=== PATIENT | male | born 1970 | race Caucasian/White ===

== ENCOUNTER 2019-04-25 18:21 | Emergency (ER) | payer MEDICAID, MEDICARE ==
[2019-04-25 18:37] VITALS: BP 125/73
--- NOTE | 2019-04-25 18:50 | UC ---
Skin Complaint HPI - HPI Summary HPI Summary: 48-year-old male comes in with a chief complaint of rash. Started 3 days ago. He does do a lot of outside work and has been exposed to multiple different plants. Also has sprayed wasp insecticide. No difficulty swallowing no shortness of breath. It does itch. He use calamine lotion topically and Benadryl by mouth both of which to help with the itching but have not decrease the rash. No fevers or chills feels well otherwise. The rash is on his arms and neck and shoulders. It is not on his legs. The rash is worse where he's been exposed to light. - History of Current Complaint Chief Complaint: UCSkin Time Seen by Provider: 04/25/19 18:40 Stated Complaint: SKIN CONCERN Pain Intensity: 0 - Allergy/Home Medications Allergies/Adverse Reactions: Allergies Allergy/AdvReac Type Severity Reaction Status Date / Time No Known Allergies Allergy Verified 04/25/19 18:37 PMH/Surg Hx/FS Hx/Imm Hx Previously Healthy: Yes - Surgical History Surgical History: Yes Surgery Procedure, Year, and Place: C5 C6 Fusion, 2005 - Family History Known Family History: Positive: Non-Contributory - Social History Alcohol Use: Occasionally Substance Use Type: None Smoking Status (MU): Former Smoker Type: Cigarettes Amount Used/How Often: 1 PPD Length of Time of Smoking/Using Tobacco: 20 Years Have You Smoked in the Last Year: No When Did the Patient Quit Smoking/Using Tobacco: 2009 Review of Systems All Other Systems Reviewed And Are Negative: Yes Constitutional: Positive: Negative Skin: Positive: Other - see hpi Eyes: Positive: Negative ENT: Positive: Negative Respiratory: Positive: Negative Cardiovascular: Positive: Negative Gastrointestinal: Positive: Negative Motor: Positive: Negative Neurovascular: Positive: Negative Musculoskeletal: Positive: Negative Neurological: Positive: Negative Psychological: Positive: Negative Is Patient Immunocompromised?: No Physical Exam Triage Information Reviewed: Yes Appearance: Well-Appearing, No Pain Distress, Well-Nourished Vital Signs: Initial Vital Signs Temp 99.7 F 04/25/19 18:32 Pulse 83 04/25/19 18:32 Resp 18 04/25/19 18:32 BP 125/73 04/25/19 18:32 Pulse Ox 100 04/25/19 18:32 Vital Signs Reviewed: Yes Eye Exam: Normal Eyes: Positive: Conjunctiva Clear ENT: Negative: Muffled voice, Hoarse voice Neck: Positive: Supple Respiratory: Positive: No respiratory distress Musculoskeletal: Positive: Strength Intact, ROM Intact Neurological: Positive: Alert Psychological: Positive: Normal Response To Family, Age Appropriate Behavior Skin: Positive: Other - There is an erythematous slightly raised rash on the sun exposed parts both arms shoulders and neck. It is almost confluent with her son exposure. It's less dense on the shoulders where his shirt covers. No vesicles no drainage. Course/Dx - Course Course Of Treatment: Rash appears to be contact dermatitis that potentially is worsened by sunlight. No evidence of infection at this time. We'll treat with a Medrol Dosepak and he can also continue the calamine lotion and the by mouth Benadryl as needed. Reevaluate if worse or any questions or concerns. - Diagnoses Provider Diagnosis: Rash, Contact dermatitis Discharge - Sign-Out/Discharge Documenting (check all that apply): Patient Departure All imaging exams completed and their final reports reviewed: No Studies - Discharge Plan Condition: Stable Disposition: HOME Prescriptions: methylPREDNISolone [Medrol Dosepak 4 MG*] 0 mg PO .SEE KITA INSTRUCTION #1 kita Patient Education Materials: Contact Dermatitis (ED), Acute Rash (ED) Referrals: [facility] [place] [facility] [Outside] Additional Instructions: FOLLOW UP WITH YOUR DOCTOR IF NOT COMPLETELY IMPROVED. GET REEVALUATED SOONER IF WORSE OR ANY QUESTIONS OR CONCERNS. - Billing Disposition and Condition Condition: STABLE Disposition: Home
== END 2019-04-25 18:55 | disposition home or self-care (01) ==
LOC: UCCORT 18:21
DX: R21 Rash and other nonspecific skin eruption (principal); L25.9 Unspecified contact dermatitis, unspecified cause; Z87.891 Personal history of nicotine dependence
CPT/HCPCS: 99202; G0463